=== PATIENT | male | born 1965 | race Caucasian/White ===

== ENCOUNTER 2016-11-17 15:48 | Outpatient (CLI) | payer BC | END 2016-11-17 15:49 | disposition home or self-care (01) | DX: G47.33 Obstructive sleep apnea (adult) (pediatric) (principal) ==

== ENCOUNTER 2017-01-02 08:00 | Outpatient (CLI) | payer BC | END 2017-01-02 23:59 | DX: Z00.00 Encounter for general adult medical examination without abnormal findings (principal); I10 Essential (primary) hypertension; E11.65 Type 2 diabetes mellitus with hyperglycemia; Z79.899 Other long term (current) drug therapy; Z12.5 Encounter for screening for malignant neoplasm of prostate ==

== ENCOUNTER 2017-05-04 09:30 | Outpatient (CLI) | payer BC, OTHER ==
[2017-05-04 13:15] LABS: BILIRUBIN,URINE NEGATIVE (NEGATIVE)
[2017-05-04 13:16] LABS: UA CHARGE (STRIP ONLY) YES; UR CULTURE IF IND NOT INDICATED
[2017-05-04 13:41] LABS: HEMOGLOBIN A1C 1.3 g/dL
== END 2017-05-04 09:31 | disposition home or self-care (01) ==
LOC: LAB.N 09:30
PROVIDERS: ATTEND Physician Assistant Medical
DX: E11.65 Type 2 diabetes mellitus with hyperglycemia (principal); E78.2 Mixed hyperlipidemia; Z79.899 Other long term (current) drug therapy
CPT/HCPCS: 36415; 81001; 81003; 82043; 82570; 82947; 83036; 87086

== ENCOUNTER 2017-10-22 08:00 | Outpatient (CLI) | payer BC ==
[2017-10-22 13:48] LABS: HB2 TOTAL 18.5 g/dL; HEMOGLOBIN A1C 2.06 g/dL; HEMOGLOBIN A1C % 12.3 % (4.6-6.2)
== END 2017-10-22 08:01 | disposition home or self-care (01) ==
LOC: LAB.R 08:00
PROVIDERS: ATTEND Physician Assistant Medical
DX: E11.65 Type 2 diabetes mellitus with hyperglycemia (principal); Z79.899 Other long term (current) drug therapy
CPT/HCPCS: 82947; 83036

== ENCOUNTER 2018-02-12 11:33 | Outpatient (CLI) | payer BC ==
[2018-02-12 19:52] LABS: HB2 TOTAL 18.7 g/dL; HEMOGLOBIN A1C 1.25 g/dL; HEMOGLOBIN A1C % 8.3 % (4.6-6.2)
== END 2018-02-12 11:34 | disposition home or self-care (01) ==
LOC: LAB.N 11:33
PROVIDERS: ATTEND Physician Assistant Medical
DX: E11.65 Type 2 diabetes mellitus with hyperglycemia (principal); Z79.899 Other long term (current) drug therapy
CPT/HCPCS: 36415; 82947; 83036

== ENCOUNTER 2018-11-18 08:55 | Outpatient (CLI) | payer BC ==
[2018-11-18 13:09] LABS: BASOPHILS # (AUTO) 0.1 10^3/uL (0.0-0.1); EOSINOPHILS # (AUTO) 0.3 10^3/uL (0.0-0.7); EOSINOPHILS % (AUTO) 2.6 %; HGB - HEMOGLOBIN 15.4 g/dL (14.0-18.0); LYMPHOCYTES # (AUTO) 2.5 10^3/uL (1.5-3.5); MEAN CORPUSCULAR HGB CONC 34.6 g/dL (32.0-36.0); MEAN CORPUSCULAR VOLUME 95.4 fL (80.0-94.0); MEAN PLATELET VOLUME 10.5 fL (7.4-11.4); MONOCYTES # (AUTO) 0.9 10^3/uL (0.0-1.0); MONOCYTES % (AUTO) 9.8 %; NEUTROPHILS # (AUTO) 5.8 10^3/uL (1.5-6.6); NEUTROPHILS % (AUTO) 60.6 %; PLT - PLATELET COUNT 172 10^3/uL (130-450); RED BLOOD COUNT 4.68 10^6/uL (4.70-6.10); RED CELL DISTRIBUTION WIDTH 13.3 % (12.0-15.0); WHITE BLOOD COUNT 9.6 x10^3/uL (4.8-10.8)
[2018-11-18 13:25] LABS: ALBUMIN 4.1 g/dL (3.2-5.5); ALBUMIN/GLOBULIN RATIO 1.2 (1.0-2.2); ALKALINE PHOSPHATASE 74 IU/L (42-121); ALT ALANINE AMINOTRANSFERASE 27 IU/L (10-60); AST ASPARTATE AMINOTRANSFERASE 23 IU/L (10-42); BILIRUBIN,TOTAL 0.6 mg/dL (0.2-1.0); BUN - BLOOD UREA NITROGEN 26 mg/dL (6-20); CARBON DIOXIDE - CO2 22 mmol/L (21-32); CHLORIDE 107 mmol/L (101-111); CHOL/HDL RATIO 5.1 (<5.0); CHOLESTEROL 168 mg/dL; CREATININE 0.8 mg/dL (0.6-1.2); GFR - MDRD 101 (>89); GLUCOSE 134 mg/dL (70-100); HDL CHOLESTEROL 33 mg/dL; LDL CHOLESTEROL,CALCULATED 97 mg/dL; LDL/HDL RATIO 2.9 (<3.6); SODIUM 137 mmol/L (135-145); TOTAL PROTEIN 7.5 g/dL (6.7-8.2); VLDL CHOLESTEROL 38 mg/dL
[2018-11-18 14:58] LABS: HB2 TOTAL 17.2 g/dL; HEMOGLOBIN A1C 1.09 g/dL; HEMOGLOBIN A1C % 7.9 % (4.6-6.2)
== END 2018-11-18 23:59 | disposition home or self-care (01) ==
LOC: LAB.N 08:55
PROVIDERS: ATTEND Physician Assistant Medical
DX: E78.2 Mixed hyperlipidemia (principal); Z79.899 Other long term (current) drug therapy; E11.8 Type 2 diabetes mellitus with unspecified complications
CPT/HCPCS: 36415; 80053; 80061; 83036; 83721; 84443; 85025

== ENCOUNTER 2019-07-27 08:00 | Outpatient (CLI) | payer BC | END 2019-07-27 23:59 | disposition home or self-care (01) | LOC: LAB.R 08:00 | PROVIDERS: ATTEND Family Medicine | DX: N39.0 Urinary tract infection, site not specified (principal) | CPT/HCPCS: 87086 ==

== ENCOUNTER 2019-08-09 09:06 | Outpatient (CLI) | payer BC ==
--- NOTE | 2019-08-09 10:19 | SLEEP CARE CONSULTATION ---
Information from patient questionnaire entered by Cate Lassiter. I have reviewed and concur with the information entered by Cate Lassiter. This document represents the service I personally performed and the decisions made by me, Jaz Mccray, RN, MSN, INVESTIGATOR CLAIMS. History of Present Illness Previous diagnosis: Moderate, Obstructive Sleep Apnea-Hypopnea Syndrome AHI: 17.6 Reason for CPAP/BiPAP follow up: annual (last seen 11/28) Equipment type: CPAP Equipment obtained from: [facility] (having difficulty getting supplies) Mask style: Nasal Mask brand: Respironics Backup mask available: No (Keep current mask when replaced for spare ) Last cushion change: 1 month ago Prior sleep studies: Yes Year and Where: 2015 CPAP Compliance Data - Data Reviewed with Patient Average duration of nightly device use: 8h 54m Compliance rate %: 98.9 Current pressure setting (cmH2O): 5-7 Humidity settin Heated hose settin Average residual AHI: 1.6 Average large leak: 39 seconds Subjective Patient concerns: reports: aerophagia (rare when he had a cold , none for months. ), other (mask headgear is falling apart. ). denies: mask discomfort, air blowing in eyes, mask leak noise, condensation in mask/hose, nasal conges tion, dry mouth, nose, throat, epistaxis Observed to snore while using device: No Current pressure setting perceived as: comfortable On therapy, patient: reports: sleeping better, awakening more refreshed, being more awake and alert during the day, more rested overall. denies: drowsiness while driving Initial [place] Sleepiness Scale score: 2 Current [place] Sleepiness Scale score: 2 Allergies and Home Medications Known drug allergies: Yes (codiene, apples) Home medication list reviewed: Yes Allergy and home medication list: metformin 1000mg bid lisinopril 5mg daily Insulin lispro 20 unit Insulin degludec unit gabapentin 300mg daily PM Cholecealiferol 2 tab daily aspirin 81mg Krill omega tablet 500mg daily Review of Systems Review of systems same as previous: No (Anterior cervical fushion 09/27) Physical Exam Blood Pressure: 110/72 Cuff size: long Heart Rate: 91 O2 Saturation: 98 Height: 5 ft 7 in Weight: 212 lb 12.8 oz Body Mass Index: 33.3 BMI Classification: Obesity Class 1 Impression and Plan 1. Obstructive Sleep Apnea-Hypopnea Syndrome, moderate, with good treatment compliance and good apnea control. On CPAP therapy, the patient has better sleep quality and is more rested overall. For supply concerns, I informed him that he can transfer to another DME and he agreed. My administrative operations coordinator of the DME options. I will make a DWO prescription. If he has continued problems, he is advised to contact this office. We discussed his obesity and impact to his apnea risk, CPAP requirements and overall health. He feels best at 180 pounds but states it is hard to maintain. He is advised to modify portions for blood sugar control and calorie control and stay away from refined foods and discuss further with his PCP for guidelines. He agreed with plan. Patient's apnea severity and rationale for treatment to reduce apnea, improve sleep quality and reduce cardiovascular and cerebrovascular events was reviewed. I also reviewed the benefit of consistent device use of CPAP for patient's diabetes. * Continue CPAP pressure at 5-7 cmH2O * Transfer of Care * Notify me if snoring with mask or feeling that the pressure is too much or too little * Attempt to lose weight * Return for follow up in 1 year , or sooner if concerns arise I spent 100% of this 20 minute visit face to face with the patient with greater than 50% of this was spent time counseling the patient and coordination of care.
[2019-08-09 10:20] VITALS: BP 110/72
== END 2019-08-09 09:07 | disposition home or self-care (01) ==
LOC: SC 09:06
PROVIDERS: ATTEND Nurse Practitioner Family
DX: G47.33 Obstructive sleep apnea (adult) (pediatric) (principal); E66.9 Obesity, unspecified; Z68.33 Body mass index [BMI] 33.0-33.9, adult
CPT/HCPCS: 99212; 99213

== ENCOUNTER 2020-05-21 14:04 | Outpatient (CLI) | payer BC ==
[2020-05-21 17:56] LABS: BASOPHILS # (AUTO) 0.1 10^3/uL (0.0-0.1); BASOPHILS % (AUTO) 0.5 %; EOSINOPHILS # (AUTO) 0.2 10^3/uL (0.0-0.7); EOSINOPHILS % (AUTO) 1.8 %; HGB - HEMOGLOBIN 15.2 g/dL (14.0-18.0); LYMPHOCYTES # (AUTO) 2.1 10^3/uL (1.5-3.5); LYMPHOCYTES % (AUTO) 22.5 %; MEAN CORPUSCULAR HEMOGLOBIN 33.6 pg (27.0-31.0); MEAN CORPUSCULAR HGB CONC 34.4 g/dL (32.0-36.0); MEAN CORPUSCULAR VOLUME 97.8 fL (80.0-94.0); MEAN PLATELET VOLUME 11.7 fL (7.4-11.4); MONOCYTES # (AUTO) 0.7 10^3/uL (0.0-1.0); MONOCYTES % (AUTO) 7.7 %; NEUTROPHILS # (AUTO) 6.3 10^3/uL (1.5-6.6); NEUTROPHILS % (AUTO) 66.8 %; PLT - PLATELET COUNT 168 10^3/uL (130-450); RED BLOOD COUNT 4.52 10^6/uL (4.70-6.10); RED CELL DISTRIBUTION WIDTH 12.1 % (12.0-15.0); WHITE BLOOD COUNT 9.4 x10^3/uL (4.8-10.8)
[2020-05-21 18:25] LABS: HB2 TOTAL 16.7 g/dL; HEMOGLOBIN A1C 1.07 g/dL
[2020-05-21 18:57] LABS: ALBUMIN 4.2 g/dL (3.2-5.5); ALBUMIN/GLOBULIN RATIO 1.3 (1.0-2.2); ALKALINE PHOSPHATASE 69 IU/L (42-121); ALT ALANINE AMINOTRANSFERASE 21 IU/L (10-60); AST ASPARTATE AMINOTRANSFERASE 19 IU/L (10-42); BILIRUBIN,TOTAL 0.8 mg/dL (0.2-1.0); BUN - BLOOD UREA NITROGEN 22 mg/dL (6-20); CALCIUM 9.3 mg/dL (8.5-10.3); CARBON DIOXIDE - CO2 25 mmol/L (21-32); CHLORIDE 106 mmol/L (101-111); CHOL/HDL RATIO 4.4 (<5.0); CHOLESTEROL 173 mg/dL; CREATININE 0.9 mg/dL (0.6-1.2); GLUCOSE 140 mg/dL (70-100); HDL CHOLESTEROL 39 mg/dL; LDL CHOLESTEROL,CALCULATED 108 mg/dL; LDL/HDL RATIO 2.8 (<3.6); SODIUM 138 mmol/L (135-145); TOTAL PROTEIN 7.4 g/dL (6.7-8.2); VLDL CHOLESTEROL 26 mg/dL
== END 2020-05-21 23:59 | disposition home or self-care (01) ==
LOC: LAB.WCP 14:04
PROVIDERS: ATTEND Family Medicine
DX: E78.2 Mixed hyperlipidemia (principal); G47.33 Obstructive sleep apnea (adult) (pediatric); G60.9 Hereditary and idiopathic neuropathy, unspecified; E11.65 Type 2 diabetes mellitus with hyperglycemia
CPT/HCPCS: 36415; 80053; 80061; 83036; 83721; 84443; 85025

== ENCOUNTER 2021-06-14 08:00 | Outpatient (CLI) | payer BC ==
[2021-06-14 13:05] LABS: CALCIUM 9.3 mg/dL (8.5-10.3); CREATININE 0.9 mg/dL (0.6-1.2); POTASSIUM 4.8 mmol/L (3.5-5.0)
[2021-06-14 13:41] LABS: ESTIMATED AVERAGE GLUCOSE 349 mg/dL (70-100); HEMOGLOBIN A1c% 13.8 % (4.27-6.07)
== END 2021-06-14 23:59 | disposition home or self-care (01) ==
LOC: LAB.WCP 08:00
PROVIDERS: ATTEND Family Medicine
DX: E11.8 Type 2 diabetes mellitus with unspecified complications (principal)
CPT/HCPCS: 36415; 80048; 83036

== ENCOUNTER 2021-09-26 09:47 | Outpatient (CLI) | payer BC ==
[2021-09-26 13:24] LABS: ESTIMATED AVERAGE GLUCOSE 306 mg/dL (70-100); HEMOGLOBIN A1c% 12.3 % (4.27-6.07)
[2021-09-26 13:28] LABS: CREATININE,URINE 53.7 mg/dL; MICROALBUM/CREATININE RATIO,UR 5.6 ug/mg (<30.0); MICROALBUMIN,URINE 0.3 mg/dL (0-300.0)
[2021-09-26 13:31] LABS: CALCIUM 9.2 mg/dL (8.5-10.3); POTASSIUM 4.3 mmol/L (3.5-5.0)
== END 2021-09-26 23:59 | disposition home or self-care (01) ==
LOC: LAB.WCP 09:47
PROVIDERS: ATTEND Family Medicine
DX: E11.8 Type 2 diabetes mellitus with unspecified complications (principal); G62.9 Polyneuropathy, unspecified; Z98.1 Arthrodesis status
CPT/HCPCS: 36415; 80048; 82043; 82570; 83036

== ENCOUNTER 2021-10-23 08:00 | Outpatient (CLI) | payer BC | END 2021-10-23 23:59 | LOC: LAB.N 08:00 | PROVIDERS: ATTEND Family Medicine | DX: R05.9 Cough, unspecified (principal); R52 Pain, unspecified; Z20.822 Contact with and (suspected) exposure to COVID-19 ==

== ENCOUNTER 2021-12-27 09:23 | Outpatient (CLI) | payer BC ==
[2021-12-27 12:03] LABS: BASOPHILS # (AUTO) 0.1 10^3/uL (0.0-0.1); BASOPHILS % (AUTO) 0.8 %; EOSINOPHILS # (AUTO) 0.2 10^3/uL (0.0-0.7); EOSINOPHILS % (AUTO) 2.8 %; HCT - HEMATOCRIT 45.2 % (42.0-52.0); HGB - HEMOGLOBIN 16.2 g/dL (14.0-18.0); LYMPHOCYTES # (AUTO) 1.6 10^3/uL (1.5-3.5); MEAN CORPUSCULAR HEMOGLOBIN 34.2 pg (27.0-31.0); MEAN CORPUSCULAR HGB CONC 35.8 g/dL (32.0-36.0); MEAN CORPUSCULAR VOLUME 95.4 fL (80.0-94.0); MEAN PLATELET VOLUME 12.1 fL (7.4-11.4); MONOCYTES # (AUTO) 0.7 10^3/uL (0.0-1.0); MONOCYTES % (AUTO) 9.9 %; NEUTROPHILS # (AUTO) 4.6 10^3/uL (1.5-6.6); NEUTROPHILS % (AUTO) 64.1 %; PLT - PLATELET COUNT 185 10^3/uL (130-450); RED BLOOD COUNT 4.74 10^6/uL (4.70-6.10); RED CELL DISTRIBUTION WIDTH 11.7 % (12.0-15.0); WHITE BLOOD COUNT 7.2 x10^3/uL (4.8-10.8)
[2021-12-27 12:11] LABS: CREATININE,URINE 43.9 mg/dL; MICROALBUM/CREATININE RATIO,UR 9.1 ug/mg (<30.0); MICROALBUMIN,URINE 0.4 mg/dL (0-300.0)
[2021-12-27 12:21] LABS: ALBUMIN 4.2 g/dL (3.2-5.5); ALBUMIN/GLOBULIN RATIO 1.4 (1.0-2.2); ALKALINE PHOSPHATASE 88 IU/L (42-121); ALT ALANINE AMINOTRANSFERASE 19 IU/L (10-60); AST ASPARTATE AMINOTRANSFERASE 16 IU/L (10-42); BILIRUBIN,TOTAL 0.8 mg/dL (0.2-1.0); BUN - BLOOD UREA NITROGEN 21 mg/dL (6-20); CALCIUM 9.4 mg/dL (8.5-10.3); CARBON DIOXIDE - CO2 25 mmol/L (21-32); CHLORIDE 101 mmol/L (101-111); CHOLESTEROL 171 mg/dL; CREATININE 0.8 mg/dL (0.6-1.2); ESTIMATED AVERAGE GLUCOSE 243 mg/dL (70-100); GFR - MDRD 100 (>89); GLUCOSE 337 mg/dL (70-100); HDL CHOLESTEROL 34 mg/dL; HEMOGLOBIN A1c% 10.1 % (4.27-6.07); LDL CHOLESTEROL,CALCULATED 69 mg/dL; POTASSIUM 4.2 mmol/L (3.5-5.0); SODIUM 136 mmol/L (135-145); TOTAL PROTEIN 7.2 g/dL (6.7-8.2); TRIGLYCERIDES 342 mg/dL; VLDL CHOLESTEROL 68 mg/dL
== END 2021-12-27 09:24 | disposition home or self-care (01) ==
LOC: LAB.N 09:23
PROVIDERS: ATTEND Family Medicine
DX: M50.10 Cervical disc disorder with radiculopathy, unspecified cervical region (principal); G62.9 Polyneuropathy, unspecified; E11.8 Type 2 diabetes mellitus with unspecified complications
CPT/HCPCS: 36415; 80053; 80061; 82043; 82570; 83036; 83721; 84443; 85025

== ENCOUNTER 2021-12-27 09:27 | Outpatient (CLI) | payer BC ==
--- NOTE | 2021-12-27 10:19 | XRAY Report ---
PROCEDURE: Hip w/Pelvis 2-3V RT INDICATIONS: HIP JOINT PAIN, RIGHT TECHNIQUE: AP pelvis with lateral view(s) of the right hip(s). COMPARISON: None. FINDINGS: BONES/JOINTS: No acute, displaced fracture. No widening of the pubic symphysis. The sacroiliac joints are symmetric. The femoral heads are normal ly seated within the acetabulum. SOFT TISSUES: Calcific density adjacent to the right greater trochanter, likely reflecting calcific t endinopathy. IMPRESSION: 1.No acute osseous abnormality. 2.Right trochanteric calcific tendinopathy. Reviewed by: Tal Manriquez MD on 12/27/2021 10:17 AM PDT Approved by: Tal Manriquez MD on 12/27/2021 10:17 AM PDT Station ID: [id number]
--- NOTE | 2021-12-27 10:20 | XRAY Report ---
PROCEDURE: Lumbar Spine Complete INDICATIONS: LUMBAR RADICULOPATHY TECHNIQUE: 5 views of the lumbar spine were acquired. COMPARISON: Reference is made to the MRI lumbar spine dated May 03, 2016 FINDINGS: L-SPINE: No acute displaced fracture or malalignment. The vertebral body heights are maintained. Mil d disc height loss at L5-S1. Facet arthrosis with neural foraminal narrowing at L5-S1. The sacroiliac joints appear patent. SOFT TISSUES: No focal abnormality. IMPRESSION: 1.Lumbar spine degeneration, most prominent at L5-S1. Reviewed by: Tal Manriquez MD on 12/27/2021 10:19 AM PDT Approved by: Tal Manriquez MD on 12/27/2021 10:19 AM PDT Station ID: [id number]
== END 2021-12-27 09:28 | disposition home or self-care (01) ==
LOC: DI.N 09:27
PROVIDERS: ATTEND Family Medicine
DX: M47.27 Other spondylosis with radiculopathy, lumbosacral region (principal); M51.17 Intervertebral disc disorders with radiculopathy, lumbosacral region; M67.853 Other specified disorders of tendon, right hip; M50.10 Cervical disc disorder with radiculopathy, unspecified cervical region; G62.9 Polyneuropathy, unspecified; E11.8 Type 2 diabetes mellitus with unspecified complications
CPT/HCPCS: 36415; 80053; 80061; 82043; 82570; 83036; 83721; 84443; 85025

== ENCOUNTER 2022-05-13 11:30 | Outpatient (CLI) | payer BC ==
[2022-05-13 18:29] LABS: ALBUMIN 2.6 g/dL (3.2-5.5); ALBUMIN/GLOBULIN RATIO 0.5 (1.0-2.2); BILIRUBIN,TOTAL 0.7 mg/dL (0.2-1.0); CREATININE 0.8 mg/dL (0.6-1.2); POTASSIUM 4.9 mmol/L (3.5-5.0); TOTAL PROTEIN 7.4 g/dL (6.7-8.2)
[2022-05-13 18:46] LABS: THYROID STIMULATING HORMONE 0.7 uIU/mL (0.34-5.60)
[2022-05-13 19:06] LABS: CHOL/HDL RATIO 17.9 (<5.0); CHOLESTEROL 161 mg/dL; CRP - C-REACTIVE PROTEIN 8.8 mg/dL (0-1.0); HDL CHOLESTEROL 9 mg/dL; LDL CHOLESTEROL,CALCULATED 86 mg/dL; LDL/HDL RATIO 9.6 (<3.6); TRIGLYCERIDES 332 mg/dL; VLDL CHOLESTEROL 66 mg/dL
[2022-05-13 20:46] LABS: ESTIMATED AVERAGE GLUCOSE 260 mg/dL (70-100); HEMOGLOBIN A1c% 10.7 % (4.27-6.07)
== END 2022-05-13 11:31 | disposition home or self-care (01) ==
LOC: LAB.N 11:30
PROVIDERS: ATTEND Family Medicine
DX: J18.9 Pneumonia, unspecified organism (principal); R42 Dizziness and giddiness; I88.9 Nonspecific lymphadenitis, unspecified; M54.12 Radiculopathy, cervical region; E78.2 Mixed hyperlipidemia; G62.9 Polyneuropathy, unspecified; E11.8 Type 2 diabetes mellitus with unspecified complications
CPT/HCPCS: 36415; 80053; 80061; 83036; 83721; 84443; 85025; 85651; 86140

== ENCOUNTER 2022-05-13 11:33 | Outpatient (CLI) | payer BC ==
--- NOTE | 2022-05-13 14:28 | XRAY Report ---
PROCEDURE: Chest 2 View X-Ray INDICATIONS: PNEUMONIA TECHNIQUE: 2 view(s) of the chest. COMPARISON: None. FINDINGS: Surgical changes and devices: Cervical spine postoperative hardware is seen. Lungs and pleura: Bilateral patchy infiltrates can be seen involving both inferior lungs. Low lung vo lumes can be seen, causing a crowded appearance to the lung markings. No pneumothorax or large pleura l effusion can be seen. Mediastinum: Mediastinal contours are normal. Heart size is normal. Bones and chest wall: No suspicious bony abnormalities. Soft tissues appear unremarkable. IMPRESSION: Bilateral patchy infiltrates are seen. Low lung volumes can be seen. Reviewed by: Virgil Brown MD on 05/13/2022 2:26 PM PDT Approved by: Virgil Brown MD on 05/13/2022 2:26 PM PDT Station ID: [id number]
== END 2022-05-13 11:34 | disposition home or self-care (01) ==
LOC: DI.N 11:33
PROVIDERS: ATTEND Family Medicine
DX: J18.9 Pneumonia, unspecified organism (principal); R42 Dizziness and giddiness; I88.9 Nonspecific lymphadenitis, unspecified; M54.12 Radiculopathy, cervical region; E78.2 Mixed hyperlipidemia; G62.9 Polyneuropathy, unspecified; E11.8 Type 2 diabetes mellitus with unspecified complications
CPT/HCPCS: 36415; 80053; 80061; 83036; 83721; 84443; 85025; 85651; 86140

== ENCOUNTER 2022-09-15 08:46 | Outpatient (CLI) | payer BC ==
[2022-09-15 13:29] LABS: FOLATE 13.91 ng/mL (5.90 - >24.8)
== END 2022-09-15 08:47 | disposition home or self-care (01) ==
LOC: LAB.N 08:46
PROVIDERS: ATTEND Psychiatry & Neurology Neurology
DX: R42 Dizziness and giddiness (principal); R29.818 Other symptoms and signs involving the nervous system
CPT/HCPCS: 36415; 82607; 82746

== ENCOUNTER 2022-10-14 14:02 | Outpatient (CLI) | payer BC ==
[2022-10-14 18:11] LABS: CALCIUM 9.3 mg/dL (8.5-10.3); POTASSIUM 4.5 mmol/L (3.5-5.0)
[2022-10-14 18:22] LABS: CREATININE,URINE 61.2 mg/dL; MICROALBUM/CREATININE RATIO,UR 8.2 ug/mg (<30.0); MICROALBUMIN,URINE 0.5 mg/dL (0-300.0)
[2022-10-14 20:23] LABS: ESTIMATED AVERAGE GLUCOSE 203 mg/dL (70-100); HEMOGLOBIN A1c% 8.7 % (4.27-6.07)
== END 2022-10-14 14:03 | disposition home or self-care (01) ==
LOC: LAB.N 14:02
PROVIDERS: ATTEND Family Medicine
DX: E11.9 Type 2 diabetes mellitus without complications (principal)
CPT/HCPCS: 36415; 80048; 82043; 82570; 83036

== ENCOUNTER 2022-12-02 21:03 | Outpatient (CLI) | payer BC ==
--- NOTE | 2022-12-03 11:17 | Ultrasound Report ---
PROCEDURE: Duplex Lwr Ext Arterial Bilat INDICATIONS: BILATERAL CLAUDICATION TECHNIQUE: Color and pulse Doppler interrogation was performed of both lower extremity arterial systems, with im age documentation. COMPARISON: None FINDINGS: Right lower extremity: Common femoral artery: 97.8 cm/sec, with triphasic flow. Deep femoral artery: 61.4 cm/sec, with biphasic flow. Proximal superficial femoral artery: 101.7 cm/sec, with triphasic flow. Mid superficial femoral artery: 100.0 cm/sec, with triphasic flow. Distal superficial femoral artery: 78.8 cm/sec, with triphasic flow. Popliteal artery: 77.7 cm/sec, with triphasic flow. Posterior tibial artery: 105.9 cm/sec, with triphasic flow. Anterior tibial artery/dorsalis pedis: 77.6/38.7 cm/sec, with biphasic flow. Martel-scale imaging description: Scattered calcified plaque Left lower extremity: Common femoral artery: 63.9 cm/sec, with triphasic flow. Deep femoral artery: 76.1 cm/sec, with biphasic flow. Proximal superficial femoral artery: 85.0 cm/sec, with triphasic flow. Mid superficial femoral artery: 95.0 cm/sec, with triphasic flow. Distal superficial femoral artery: 110.7 cm/sec, with triphasic flow. Popliteal artery: 74.4 cm/sec, with triphasic flow. Posterior tibial artery: 55.3 cm/sec, with triphasic flow. Anterior tibial artery/dorsalis pedis: 77.2/9.5 cm/sec, with triphasic/biphasic flow. Martel-scale imaging description: Scattered calcified plaque IMPRESSION: Scattered calcified plaque with no significant focal stenosis identified. Reviewed by: Artemio Dozier on 12/03/2022 11:16 AM PST Approved by: Artemio Dozier on 12/03/2022 11:16 AM PST Station ID: [id number]
== END 2022-12-02 21:04 | disposition home or self-care (01) ==
LOC: DI 21:03
PROVIDERS: ATTEND Family Medicine
DX: I70.202 Unspecified atherosclerosis of native arteries of extremities, left leg (principal); I70.201 Unspecified atherosclerosis of native arteries of extremities, right leg
CPT/HCPCS: 93925

== ENCOUNTER 2023-01-08 08:00 | Outpatient (CLI) | payer BC ==
--- NOTE | 2023-01-08 16:58 | XRAY Report ---
PROCEDURE: Hip 2 View RT INDICATIONS: RIGHT HIP PAIN TECHNIQUE: 2 views of the hip were acquired. COMPARISON: None FINDINGS: Bones: No fractures or dislocations. Right worse than left bilateral hip joint osteoarthritic olmedo es are seen with superior joint space narrowing, subchondral sclerosis and marginal osteophyte format ion. No evidence of avascular necrosis of femoral head. No suspicious bony lesions. The visualized p elvic ring appears intact. Soft tissues: No suspicious soft tissue calcifications or masses. IMPRESSION: Right worse than left bilateral hip joint osteoarthritis. No hip fracture or dislocation. No evidence of avascular necrosis. Reviewed by: Rosalio Valerio MD on 01/08/2023 4:56 PM PDT Approved by: Rosalio Valerio MD on 01/08/2023 4:56 PM PDT Station ID: [id number]
== END 2023-01-08 23:59 | disposition home or self-care (01) ==
LOC: DI.WOS 08:00
PROVIDERS: ATTEND Physician Assistant Surgical
DX: M70.71 Other bursitis of hip, right hip (principal); M16.0 Bilateral primary osteoarthritis of hip

== ENCOUNTER 2023-04-03 09:30 | Outpatient (CLI) | payer BC ==
--- NOTE | 2023-04-03 10:21 | Sleep Patient Instructions ---
Sleep Center Visit Summary - Patient Visit Information Reason for Visit: Initial consult to re-establish care - Patient Instructions Additional Instructions: You will continue with CPAP therapy with pressure set at 5-7 cmH2O. A supply and new CPAP prescription will be updated with your DME. Please call when you obtain your new CPAP to set up a compliance appointment. We encourage you to continue to try to lose weight. Please follow up with the sleep care office one month after you obtain your new CPAP. - Clinic Information Contact: [facility] [address] [place] [address] [email or web address] T: [phone]
--- NOTE | 2023-04-03 10:29 | SLEEP CARE CONSULTATION ---
Information from patient questionnaire entered by Jennifer Joshi. I have reviewed and concur with the information entered by Jennifer Joshi. This document represents the service I personally performed and the decisions made by me, Miguelina Morejon ARNP. History of Present Illness Service Date and Time: 04/03/2023 0930 Reason for Visit: New patient, Previously diagnosed sleep apnea, Re-establish care Chief Complaint: reports: Other (UPDATE SUPPLIES) Usual bedtime: 9PM Time it takes to fall asleep: AN HR Snores at night: Yes Observed to quit breathing while asleep: Yes Sleeps alone due to snoring: No Number of times waking at night: 3 Reasons for waking at night: reports: Bathroom. denies: Choking, Gasping for air Toss, Turn, or Twitch while sleeping: Yes Recalls having dreams: Yes Feels refreshed in the morning: No Morning headache: No Sleepy or fatigued during the day: Yes Ever fallen asleep while driving: No Takes day naps: No Dreams during day naps: No Prior sleep studies: Yes Year and Where: 2015 [facility] Additional HPI information: LAWANDA SOLITARIO was previously diagnosed to have moderate, AHI 17.6, obstructive sleep apnea-hypopnea syndrome in a PSG done at [facility] dated 08/20/2016 and comes in today to re-establish care for CPAP therapy. - Parasomnia Symptoms Ever been unable to move upon waking from sleep: No Walks in sleep: No Talks in sleep: No Ever acted out dreams in sleep: No Ever felt weak in the knees when startled or emotional: No Bothered by creepy, crawly, restless sensations in legs: Yes Problems with memory or concentration: No CPAP Compliance Data - Data Reviewed with Patient Current pressure setting (cmH2O): 5-7 Compliance data discussion: He has a Dreamstation that was issued in 2016. He has not been using it in the last year because he developed double pneumonia and his doctors advised him to not use it until he was able to get new supplies. He was using a medium cushion, nasal cushion mask. He does not have a regular supply DME. His last one was not dependable for supplies. Subjective Patient concerns: denies: aerophagia, mask discomfort, air blowing in eyes, mask leak noise, condensation in mask/hose, nasal congestion, dry mouth, nose, throat, epistaxis Current pressure setting perceived as: comfortable On therapy, patient: reports: sleeping better, awakening more refreshed, being more awake and alert during the day, more rested overall. denies: drowsiness while driving Initial [place] Sleepiness Scale score: 2 Current [place] Sleepiness Scale score: 4 (04/03/23) Past Medical History Past Medical History: reports: Diabetes Social History The patient's occupation is a RE. Patient is and lives in [place]. Have you smoked in the past 12 months: No Alcohol use: Yes Alcohol amount and frequency: RARELY Caffeine use: Yes Caffeine amount and frequency: 1 cup tea in AM normally; 3 cups coffee on Thursday Family History Family history of sleep disordered breathing: No Allergies and Home Medications Known drug allergies: Yes (codeine) Drug allergies reviewed: Yes Home medication list reviewed: Yes Allergy and home medication list: Allergies apple Allergy (Severe, Verified 04/02/23 13:43) Anaphylaxis codeine Allergy (Verified 04/02/23 13:43) Anaphylaxis Review of Systems Weight loss over past 5 years: 20 Cardiovascular: denies: high blood pressure Gastrointestinal: reports: nausea. denies: heartburn Neurological: reports: headaches, other (having vertigo) Psychiatric: denies: anxiety, depression Musculoskeletal: reports: joint pain, neck pain, back pain, muscle pain or cramping, mobility problems Immunologic: reports: allergies to food or environment Physical Exam Vital signs obtained and entered by: JENNIFER Castillo MA Blood Pressure: 128/68 (LEFT ARM) Cuff size: regular Heart Rate: 72 O2 Saturation: 97 Height: 5 ft 8 in Weight: 191 lb 3.2 oz Body Mass Index: 29.0 BMI Classification: Overweight Neck circumference: 16.75 Heart: regular rate and rhythm Lungs: clear bilaterally Impression and Plan 1. Obstructive Sleep Apnea-Hypopnea Syndrome, moderate. He has been unable to use his CPAP because he had double pneumonia after having Covid and his physicians were concerned his equipment may be contaminated. He was unable to get supplies because his prescription was . I informed him that his Dr rodriguez is on a recall. He was having difficulty breathing with it, felt suffocating in mask when he had to stop using it. He denies any black debris in his device. On CPAP therapy, the patient has better sleep quality and is more rested overall. He would like to restart using his CPAP. His Dreamstation was last updated in 2016. The patients CPAP is over 5 years old and of reasonable use.Thus, the CPAP will be updated. A DWO prescription will be made and an updated machine requested. I will add a transfer of care for the DME since his last company was unreliable for supplies. Compliance guidelines for new device and follow up discussed. Patient's apnea severity and rationale for treatment to reduce apnea, improve sleep quality and reduce cardiovascular and cerebrovascular events was reviewed. I also reviewed the benefit of consistent device use of CPAP for diabetes. * Continue auto CPAP pressure at 5-7 cmH2O * Transfer DME * Update machine * Update supplies * Notify me if snoring with mask or feeling that the pressure is too much or too little * Attempt to lose weight * Call this office if any problems using CPAP * Return for follow up one month after obtaining new device, or sooner if concerns arise Counseling Topics: Weight loss health impact Visit Type: In Office Time Spent with Patient (minutes): 40 Provider Statement: I spent 100% of the Face to Face Visit with the patient with greater than 50% spent counseling the patient and coordination of care.
[2023-04-03 11:23] VITALS: BP 128/68
== END 2023-04-03 09:31 | disposition home or self-care (01) ==
LOC: SC 09:30
PROVIDERS: ATTEND Nurse Practitioner Family
DX: G47.33 Obstructive sleep apnea (adult) (pediatric) (principal); E66.3 Overweight; Z68.29 Body mass index [BMI] 29.0-29.9, adult
CPT/HCPCS: 99203; 99212